=== PATIENT | female | born 1990 | race Caucasian/White ===

== ENCOUNTER 2022-09-10 11:37 | Outpatient (CLI) | payer BC, SELFPAY ==
[2022-09-10 12:08] LABS: Hematocrit 39.8 % (37.0-47.0); Hemoglobin 13.6 g/dL (12.0-15.0)
== END 2022-09-10 11:38 | disposition home or self-care (01) ==
LOC: ANHLAB 11:40
PROVIDERS: Visit Provider Obstetrics & Gynecology Gynecology
DX: Z01.818 Encounter for other preprocedural examination (principal); R87.619 Unspecified abnormal cytological findings in specimens from cervix uteri
CPT/HCPCS: 36415; 85014; 85018; 86850; 86900; 86901

== ENCOUNTER 2022-09-15 00:35 | Day surgery (SDC) | payer BC, SELFPAY ==
[2022-09-09 10:03] VITALS: BMI 28.7
--- NOTE | 2022-09-09 10:19 | PC.NURSE ---
Report to the Outpatient Waiting Room, entrance under the green pavilion located off [facility], at time 07:30AM on date 09-15-22. Planned Procedure Time: 09:30AM. Time changes happen often and if your time is changed the preop area will call you the afternoon before. - You and your visitor will be asked to self-screen and do not enter if you have any COVID symptoms. - A mask is optional within the hospital at this time. Patients may have clear liquids (water, carbonated beverages, clear teas, apple juice) until 3 hours prior to surgery (06:30AM) with a maximum of 20 ounces. - No food from midnight until time of surgery Take the following medications with a SIP of water the morning of surgery: N/A DO NOT STOP ANY OF YOUR OTHER PRESCRIPTION MEDICATIONS PRIOR TO SURGERY ?EXCEPT THE FOLLOWING Medications to discontinue per physician N/A Please no make-up, nail romansh, hairspray, perfume, deodorant, or body powder the day of surgery. No jewelry (including any body piercings) or valuables the day of surgery, leave them at home. Please take a shower or bath the night before, or the morning of, surgery with an antibacterial soap. Wear comfortable, loose fitting clothing. - Jewelry must be removed prior to entering the operating room. Rings and piercings that are not removed may be cut off. - The hospital will not accept responsibility for valuables. - Please leave all valuables, including medications, at home the day of surgery. If you are going home after surgery, a licensed snaker tractor driver must drive you home. - NO public transportation without another adult if you receive anesthesia. - We recommend that an adult stay with you for 24 hours following discharge. - We also recommend that you do not drive, make important decision, drink alcoholic beverages, or take any drugs that were not prescribed by your health care provider for at least 24 hours after your discharge time. Follow any additional instructions given to you from your surgeon. If you or anyone in your household have experienced Covid symptoms in the past week, please notify your surgeon or the nurse liaison at the phone number below for possible testing. Telephone instructions given to PATIENT and asked if any additional questions and then verbalized understanding. Patient advised to call surgeon office or pre surgery nurse liaison [phone] if any additional questions.
--- NOTE | 2022-09-15 07:26 | PM.HPGS ---
History of Present Illness History of Present Illness Consent: Risks, benefits, and alternatives have been discussed and questions answered. Patient agrees to proceed with procedure. Chief complaint: Ca In Situ RIC III Narrative: Kayley Delgado is a 32 year old female with endocervical curetting showing RIC 3. Options were discussed with the patient and she has elected to proceed with a LEEP and 48hours later laparoscopic-assisted vaginal hysterectomy with bilateral salpingectomy. Patient has had a prior LEEP in 2014 with RIC 2 and positive endocervical margins with a prior provider. Risks of carcinoma were reviewed. Patient is aware if carcinoma was found on the LEEP specimen the hysteroscope me would be canceled and she would be referred to Oncology. Risks of the procedure including infection, bleeding, and injury to surrounding organs ( bowel, bladder, ovaries, ureters), deep vein thrombosis, and anesthesia were reviewed. Postop expectations are also reviewed. Patient voices understanding and agrees to proceed. Review of Systems Review of Systems: All systems reviewed & are unremarkable except as noted in HPI and below ( History of present illness) FOR[facility]LY [facility] Past Medical History Medical History (Updated 09/15/22 @ 07:32 by Manjula Arredondo MD) Anxiety History of spontaneous x4 (normal spontaneous vaginal delivery) x1 Surgical History Surgical History (Updated 09/15/22 @ 07:31 by Manjula Arredondo MD) History of D&C for 2008 miscarriage History of loop electrical excision procedure (LEEP) 2014 with positive endocervical margins for RIC 2 History of primary section for breech Social History Social History Years smoked: 1 Smoking status: Former smoker Tobacco type: cigarettes Alcohol intake: former Alcohol use details: OCCASIONAL Substance use: never Substance use type: does not use Living arrangements: with family Spiritual care concerns: No Meds Home Medications and Allergies Home Medications Medication Instructions Recorded Confirmed Type No Home Medications 09/09/22 09/09/22 History Allergies Allergy/AdvReac Type Severity Reaction Status Date / Time DEPO INJECTION Allergy Mild HIVES Uncoded 09/09/22 10:52 Exam Const: General: healthy appearing and alert Orientation/consciousness: patient oriented x3 Resp: Effort & Inspection: normal respiratory effort GI: GI Palp: Yes Soft to palpation, No Tenderness to palpation present (GI) and No Palpable mass present : External Female Exam: normal external appearance Speculum Exam - Vagina: normal appearance of the vagina and normal vaginal discharge Speculum Exam - Cervix: normal appearance of the cervix Bimanual exam- vagina & uterus: uterine size normal and consistency normal Bimanual Exam- Adnexa, other: normal adnexae and No adnexal tenderness Neuro: General: patient oriented x3 Assessment and Plan Assessment and plan (1) Severe dysplasia of cervix (RIC III): Code(s): D06.9 - Carcinoma in situ of cervix, unspecified Status: Acute Assessment and Plan: plan to proceed with LEEP and top-hat and if pathology is negative for carcinoma plan in 48hours to proceed with laparoscopic-assisted vaginal hysterectomy with bilateral salpingectomy
[2022-09-15] MEDS: ACETAMINOPHEN 500 MG TABLET 1000 MG PO (08:00)
[2022-09-15] MEDS: LACTATED RINGERS 1,000 ML 30 ML IV CONT (08:00)
[2022-09-15 08:12] VITALS: BP 114/81; PULSE 86; RESP 14; TEMP 37.1; O2SAT 100
--- NOTE | 2022-09-15 09:24 | WPDHPUPDATE1 ---
History and Physical Update Update Date/Time: 09/15/22 09:24 History and Physical has been reviewed, including an updated exam of the patient. There are NO changes in the patient's condition. Risks, benefits, and alternatives have been discussed and questions answered. Patient agrees to proceed with procedure.
[2022-09-15] MEDS: LIDO 1%/EPINEPHRINE 1:100,000 50 ML VIAL 10 ML INFILTRATE (09:42)
--- NOTE | 2022-09-15 09:50 | P.OP_ITS ---
Procedure Note - Detailed Date of Procedure 09/15/22 Pre-op Diagnosis RIC III of endocervix Post-op Diagnosis Same Procedure Performed LEEP with top-hat removal of IUD Surgeon Manjula Arredondo MD Anesthesia MAC and Local ( 1% lidocaine with epinephrine) Findings grossly normal-appearing cervix IUD strings present Description of Procedure The patient was taken to the operating room and placed under anesthesia in the dorsal lithotomy position. She was draped in usual sterile fashion. A coated bivalve speculum was placed in the vagina and the cervix is grossly inspected. The IUD strings grasped and IUD removed and discarded intact. The cervix is injected in each quadrant with 1% lidocaine with epinephrine. The 2x1cm loop was used for an anterior pass and a posterior pass. A 1x1cm loop was used for a top-hat over the endocervix. The cervix is grasped with a tenaculum anteriorly in the uterus has good descent. Monsel's was applied to the cone bed. Good hemostasis is noted. All instruments are removed. Sponge, needle, and instrume nt counts are correct per the OR staff. Patient is awakened from anesthesia and taken to recovery in stable condition. Estimated Blood Loss 5 Drains No Packing No Pathology Yes ( Anterior lip, posterior lip, top-hat all marked at 12:00 p.m. with suture) Complications No immediate complications Condition Stable Disposition PACU
[2022-09-15 09:56] VITALS: BP 104/50; PULSE 86; RESP 12; O2SAT 100
[2022-09-15 10:26] VITALS: BP 98/59; PULSE 70; RESP 16; O2SAT 100
== END 2022-09-15 10:42 | disposition home or self-care (01) ==
PROVIDERS: Visit Provider Obstetrics & Gynecology Gynecology
PROC: 0UBC7ZZ Excision of Cervix, Via Natural or Artificial Opening (ICD-10-PCS; CPT 57522; principal; 2022-09-15 09:30)
DX: D06.0 Carcinoma in situ of endocervix (principal); Z30.432 Encounter for removal of intrauterine contraceptive device; Z87.891 Personal history of nicotine dependence
CPT/HCPCS: 57522; 58301; 88307; 88342; A9270; J2250; J2405; J2704; J3010; J7120